=== PATIENT | male | born 1970 | race Caucasian/White ===

== ENCOUNTER 2017-06-26 18:13 | Emergency (ER) | payer OTHER ==
[2017-06-26 18:44] VITALS: TEMP 99.2
[2017-06-26] MEDS ORDERED: Labetalol Hydrochloride 300 mg Tab PO STA ×2 (19:00→21:40)
[2017-06-26] MEDS ORDERED: Labetalol 25mg/5ml Syringe IVP STA (20:00)
[2017-06-26] MEDS ORDERED: Labetalol 25mg/5ml Syringe ONE (20:07)
[2017-06-26 20:26] LABS: BASO # 0.1 K/uL (0.0-0.2); BASO % 0.5 % (0.0-2.0); EOS # 0.2 K/uL (0.0-0.7); EOS % 1.5 % (0.0-4.0); HEMATOCRIT 45.4 % (35.0-51.0); LYMPH # 3.1 K/uL (1.0-4.3); MEAN CORPUSCULAR HEMOGLOBIN 30.1 pg (27.0-31.0); MEAN CORPUSCULAR HGB CONC 34.1 g/dL (33.0-37.0); MONO % 9.3 % (0.0-10.0); RED CELL DISTRIBUTION WIDTH 14.6 % (11.5-14.5); WHITE BLOOD COUNT 10.6 K/uL (4.8-10.8)
[2017-06-26 20:29] LABS: MEAN CELL VOLUME 88.3 fL (80.0-94.0)
[2017-06-26 20:36] LABS: CHLORIDE 105 mmol/L (98-107); SODIUM 140 mmol/L (132-148)
[2017-06-26 20:39] LABS: ALB/GLOB RATIO 1.1 (1.0-2.1); ALKALINE PHOSPHATASE 60 U/L (38-126); ALT/SGPT 37 U/L (21-72); AST/SGOT 36 U/L (17-59); BLOOD UREA NITROGEN 11 mg/dL (9-20); CARBON DIOXIDE 23 mmol/L (22-30); GFR AFRICAN-AMERICAN > 60; GLUCOSE,RANDOM 90 mg/dL (75-110); TOTAL PROTEIN 8.5 g/dL (6.3-8.3)
[2017-06-26 20:40] LABS: CALCIUM 8.9 mg/dl (8.6-10.4); POTASSIUM 4.2 mmol/L (3.6-5.2)
[2017-06-26 20:44] LABS: RBC URINE 5 /hpf (0-3); URINE BACTERIA RARE (<OCC); URINE BILIRUBIN NEGATIVE (NEGATIVE); URINE COLOR Yellow (YELLOW); URINE GLUCOSE (UA) NORMAL (Normal); URINE KETONE NEGATIVE (NEGATIVE); URINE LEUKOCYTE ESTERASE NEG Leu/uL (Negative); URINE PROTEIN 2+ mg/dL (NEGATIVE); URINE UROBILINOGEN NORMAL mg/dL (0.2-1.0); WBC URINE 2 /hpf (0-5)
[2017-06-26 20:46] LABS: URINE BLOOD 1+ (NEGATIVE)
--- NOTE | 2017-06-26 22:30 | C.PDOC ---
History Of Present Illness 46 y/o male c/o mild headache and elevated blood pressure that began today. Patient notes running out of BP meds a week prior. Patient is deaf since childhood, conversation difficult. Denies fever, chills, change in vision, weakness, numbness, or any other complaints. Time Seen by Provider: 06/26/17 20:15 Chief Complaint (Nursing): Headache History Per: Patient History/Exam Limitations: physical impairment (Deafness) Onset/Duration Of Symptoms: Hrs Current Symptoms Are (Timing): Still Present Severity: Mild Recent travel outside of the [place]: No Additional History Per: Patient Past Medical History Reviewed: Historical Data, Nursing Documentation, Vital Signs Vital Signs: Last Vital Signs Temp 99.2 F 06/26/17 18:37 Pulse 86 06/26/17 22:43 Resp 24 06/26/17 22:43 BP 153/97 H 06/26/17 22:43 Pulse Ox 96 06/26/17 22:43 - Medical History PMH: HTN, Hypercholesterolemia - [facility] Procedures CLOSURE SKIN & SUBCUTANEOUS NEC (12/30/14) TETANUS TOXOID ADMINIST (12/30/14) Family History: States: Unknown Family Hx - Social History Hx Tobacco Use: Yes Hx Alcohol Use: Yes Hx Substance Use: Yes - Immunization History Hx Tetanus Toxoid Vaccination: No Hx Influenza Vaccination: No Hx Pneumococcal Vaccination: No Review Of Systems Except As Marked, All Systems Reviewed And Found Negative. Constitutional: Positive for: Other (Elevated BP). Negative for: Fever Eyes: Negative for: Vision Change Neurological: Positive for: Headache. Negative for: Weakness, Numbness Physical Exam - Physical Exam Appears: Non-toxic, No Acute Distress, Other (Obese, pleasant, smiling, Jovial.) Skin: Warm, Dry Head: Atraumatic, Normacephalic Eye(s): bilateral: Normal Inspection Neck: Supple Cardiovascular: Rhythm Regular Respiratory: Normal Breath Sounds, No Rales, No Rhonchi, No Wheezing Gastrointestinal/Abdominal: Soft, No Tenderness Neurological/Psych: Oriented x3 (Awake and alert), Normal Motor, Normal Sensation Gait: Steady ED Course And Treatment - Laboratory Results Result Diagrams: 06/26/17 20:19 06/26/17 20:19 O2 Sat by Pulse Oximetry: 98 (RA) Pulse Ox Interpretation: Normal Medical Decision Making Medical Decision Making: Plans: * EKG * CXR * Catapres * Trandate * Normodyne * UA * IV fluids poorly controlled BP and headache pain lenghy process to lower his BP, better with Labetolol PO, continue as opt and f/ u with PMD Disposition Doctor Will See Patient In The: Office Counseled Patient/Family Regarding: Studies Performed, Diagnosis - Disposition Referrals: [facility] [Outside] [facility] [Outside] [facility] [Outside] Disposition: HOME/ ROUTINE Disposition Time: 22:30 Condition: GOOD Additional Instructions: Hypertension: Continue Labetolol 400 mg twice a day: 8AM and 4PM follow-up in our outpatient Clinic (free) in about 1 month for re-evaluation. Prescriptions: Labetalol [Trandate] 400 mg PO BID #280 tab Forms: [employer] (Uzbek) - Clinical Impression Clinical Impression: Hypertension, Headache - Scribe Statement The provider has reviewed the documentation as recorded by the Scribe Vineet barr All medical record entries made by the Scribe were at my direction and personally dictated by me. I have reviewed the chart and agree that the record accurately reflects my personal performance of the history, physical exam, medical decision making, and the department course for this patient. I have also personally directed, reviewed, and agree with the discharge instructions and disposition.
[2017-06-26 22:45] VITALS: BP 153/97; PULSE 86; RESP 24
[2017-06-27 02:31] VITALS: O2SAT 98
--- NOTE | 2017-06-27 10:29 | RAD ---
PROCEDURE: CHEST RADIOGRAPH, 1 VIEW HISTORY: SOB COMPARISON: Chest radiographs 12/01/2015. FINDINGS: LUNGS: Clear. PLEURA: No pneumothorax or pleural fluid seen. CARDIOVASCULAR: Normal. OSSEOUS STRUCTURES: No significant abnormalities. VISUALIZED UPPER ABDOMEN: Normal. OTHER FINDINGS: None. IMPRESSION: No acute cardiopulmonary disease or significant interval change.
== END 2017-06-26 22:48 | disposition home or self-care (01) ==
LOC: C.ER 18:13
DX: I10 Essential (primary) hypertension (principal); R51 Headache

== ENCOUNTER 2018-04-15 08:11 | Emergency (ER) | payer OTHER ==
[2018-04-15 08:27] VITALS: TEMP 99.1
--- NOTE | 2018-04-15 08:40 | C.PDOC ---
History Of Present Illness Patient is a 47 y/o male, with a Hx of chronic left leg swelling since 2011, chronic left ankle pain, and deafness since childhood, who presents to the ED with a complaint of new onset of left foot pain and swelling for the last 2-3 days. Patient reports to have had prior similar symptoms on right foot; questionable history of Gout. Patient is compliant with Lebetalol, last dose this morning. Denies any trauma, fever, chest pain, headache, or any other associated symptoms. Time Seen by Provider: 04/15/18 08:29 Chief Complaint (Nursing): Lower Extremity Problem/Injury History Per: Patient History/Exam Limitations: no limitations Onset/Duration Of Symptoms: Days (2-3) Current Symptoms Are (Timing): Still Present Past Medical History Reviewed: Historical Data, Nursing Documentation, Vital Signs Vital Signs: Last Vital Signs Temp 99.1 F 04/15/18 08:25 Pulse 75 04/15/18 10:35 Resp 16 04/15/18 10:35 BP 184/104 H 04/15/18 10:35 Pulse Ox 95 04/15/18 11:09 - Medical History PMH: HTN, Hypercholesterolemia, Chronic Pain (chronic left leg swelling and left ankle pain ) Other PMH: deaf since childhood Surgical History: No Surg Hx - [facility] Procedures CLOSURE SKIN & SUBCUTANEOUS NEC (12/30/14) TETANUS TOXOID ADMINIST (12/30/14) Family History: States: No Known Family Hx - Social History Hx Tobacco Use: Yes Hx Alcohol Use: Yes Hx Substance Use: Yes - Immunization History Hx Tetanus Toxoid Vaccination: No Hx Influenza Vaccination: No Hx Pneumococcal Vaccination: No Review Of Systems Constitutional: Negative for: Fever Cardiovascular: Negative for: Chest Pain Musculoskeletal: Positive for: Foot Pain (left foot pain and swelling) Neurological: Negative for: Weakness, Numbness, Headache Physical Exam - Physical Exam Appears: Well, Non-toxic, No Acute Distress, Other (deaf) Skin: Normal Color, Warm, Dry, Other (erythema to left metatarsal head) Head: Atraumatic, Normacephalic Eye(s): bilateral: PERRL, EOMI Oral Mucosa: Moist Chest: Symmetrical Cardiovascular: Rhythm Regular, No Murmur Respiratory: Normal Breath Sounds, No Rales, No Rhonchi, No Wheezing Gastrointestinal/Abdominal: Soft, No Tenderness Extremity: Normal ROM (active range of motion), Tenderness (to left metatarsal head), No Deformity (no gross deformity ), Swelling (left metatarsal head) ED Course And Treatment O2 Sat by Pulse Oximetry: 95 Progress Note: Catapres 0.3 mg PO, Colocrys 1.2 mg PO, Indocin 50 mg PO, and Prednisone 60 mg PO administered. Reevaluation Time: 10:55 Reassessment Condition: Improved (improved since prior evaluation; continue Colchicine.) Progress - Data Reviewed Data Reviewed: Old records Disposition Counseled Patient/Family Regarding: Diagnosis, Need For Followup, Rx Given - Disposition Referrals: YOUR,PMD [Other] Disposition: HOME/ ROUTINE Disposition Time: 12:11 Condition: IMPROVED Prescriptions: Colchicine [Colcrys] 0.6 mg PO BID PRN #6 tablet PRN Reason: Pain, Moderate (4-7) Indomethacin [Indocin] 50 mg PO TID PRN #9 cap PRN Reason: Pain, Moderate (4-7) predniSONE [Prednisone] 60 mg PO DAILY #12 tab Instructions: Gout (DC) Forms: [employer] (Prydeinig) - Clinical Impression Clinical Impression: Gout - Scribe Statement The provider has reviewed the documentation as recorded by the Scribe Pooja Galdamez All medical record entries made by the Jenniferibe were at my direction and personally dictated by me. I have reviewed the chart and agree that the record accurately reflects my personal performance of the history, physical exam, medical decision making, and the department course for this patient. I have also personally directed, reviewed, and agree with the discharge instructions and disposition.
[2018-04-15 10:36] VITALS: RESP 16
[2018-04-15 11:09] VITALS: O2SAT 95
[2018-04-15 13:30] VITALS: BP 175/101; PULSE 69
== END 2018-04-15 13:29 | disposition home or self-care (01) ==
LOC: C.ER 08:11
DX: M10.9 Gout, unspecified (principal)

== ENCOUNTER 2018-05-14 16:29 | Emergency (ER) | payer OTHER ==
[2018-05-14 17:49] LABS: URINE BILIRUBIN NEGATIVE (NEGATIVE); URINE BLOOD 1+ (NEGATIVE); URINE CLARITY Clear (Clear); URINE COLOR Yellow (YELLOW); URINE GLUCOSE (UA) NORMAL (Normal); URINE LEUKOCYTE ESTERASE NEG Leu/uL (Negative); URINE PROTEIN NEGATIVE (NEGATIVE); URINE UROBILINOGEN NORMAL mg/dL (0.2-1.0)
[2018-05-14 17:58] VITALS: O2SAT 99
--- NOTE | 2018-05-14 18:12 | C.PDOC ---
History Of Present Illness 47-year-old male sent to the emergency department by his PMD for evaluation of elevated blood pressure. Pt went to doctor for routine physical today in order to apply for jobs. He has PMHx of HTN, hyperlipidemia. Patient states he has been compliant with 400mg Labetalol BID, Atenolol 1tab daily for approximately one year. He denies current physical complaints, including chest pain, abdominal pain, shortness of breath, nausea/vomiting, headache, dizziness, visual changes, facial droop, slurred speech, extremity weakness, sensory changes, or any other associated symptoms. No medication adjustments were made in PMD's office today. Time Seen by Provider: 05/14/18 16:56 Chief Complaint (Nursing): High Blood Pressure History Per: Patient History/Exam Limitations: no limitations Current Symptoms Are (Timing): Still Present Associated Symptoms: denies: Chest Pain, Dyspnea, Dizziness, Blurred Vision, Focal Weakness, Headache Quality Of Symptoms: Asymptomatic Past Medical History Reviewed: Historical Data, Nursing Documentation, Vital Signs Vital Signs: Last Vital Signs Temp 98.1 F 05/14/18 18:56 Pulse 79 05/14/18 18:56 Resp 20 05/14/18 18:56 BP 177/115 H 05/14/18 18:56 Pulse Ox 99 05/14/18 19:12 - Medical History PMH: HTN, Hypercholesterolemia, Chronic Pain (chronic left leg swelling and left ankle pain ) - [facility] Procedures CLOSURE SKIN & SUBCUTANEOUS NEC (12/30/14) TETANUS TOXOID ADMINIST (12/30/14) Family History: States: No Known Family Hx - Social History Hx Tobacco Use: Yes Hx Alcohol Use: Yes Hx Substance Use: No - Immunization History Hx Tetanus Toxoid Vaccination: No Hx Influenza Vaccination: No Hx Pneumococcal Vaccination: No Review Of Systems Constitutional: Negative for: Fever, Chills Cardiovascular: Negative for: Chest Pain, Palpitations Respiratory: Negative for: Shortness of Breath Gastrointestinal: Negative for: Nausea, Vomiting Musculoskeletal: Negative for: Neck Pain, Back Pain Neurological: Negative for: Weakness, Numbness, Incoordination, Confusion, Seizures, Altered Mental Status, Headache, Dizziness Physical Exam - Physical Exam Appears: Well, Non-toxic, No Acute Distress, Other (speech slightly slurred/ garbled due to hearing impairment) Skin: Normal Color, Warm, Dry, No Rash Head: Atraumatic, Normacephalic Eye(s): bilateral: Normal Inspection, PERRL, EOMI Ear(s): Left: Other (+hearing aid) Oral Mucosa: Moist Neck: Normal, Normal ROM, Supple Cardiovascular: Rhythm Regular, No Murmur Respiratory: Normal Breath Sounds, No Rales, No Rhonchi, Wheezing Gastrointestinal/Abdominal: Normal Exam, Bowel Sounds, Soft, No Tenderness Extremity: Normal ROM, No Pedal Edema, No Calf Tenderness Neurological/Psych: Oriented x3, Normal Speech, Normal Cognition, Normal Cranial Nerves, No Cerebellar Signs, Normal Motor, Normal Sensation, No Dysarthria, No Romberg Gait: Steady ED Course And Treatment - Laboratory Results Result Diagrams: 05/14/18 18:38 05/14/18 18:38 ECG: Interpreted By Me, Viewed By Me (sinus rhythm 78 bpm, normal axis, T wave inversions I, aVL, V6, no acute ST changes) ECG Interpretation: No Acute Changes Rate From EC O2 Sat by Pulse Oximetry: 99 (RA) Pulse Ox Interpretation: Normal Progress Note: Blood work, EKG ordered and reviewed. Patient given PO Norvasc 10mg. Reevaluation Time: 19:15 Reassessment Condition: Improved (On reassessment, patient is resting comfortably, in no distress or pain, completely asymptomatic. Will add Norvasc to patient's HTN regimen. He was instructed to follow up with PMD in 1-2 days, and he understands he should return to ED if symptoms worsen.) Disposition Counseled Patient/Family Regarding: Studies Performed, Diagnosis, Need For Followup, Rx Given - Disposition Referrals: Carolyn Walker MD [Medical Doctor] - Disposition: HOME/ ROUTINE Disposition Time: 19:15 Condition: STABLE Additional Instructions: FOLLOW UP WITH YOUR DOCTOR IN 1-2 DAYS RETURN TO ER IF YOU HAVE ANY CONCERNING SYMPTOMS Prescriptions: amLODIPine [Norvasc] 10 mg PO DAILY #30 tab Instructions: High Blood Pressure (DC) Forms: [facility] (Luxembourgish) Print Language: TELUGU - POA Present On Arrival: None - Clinical Impression Clinical Impression: Hypertension - Scribe Statement The provider has reviewed the documentation as recorded by the Scribe (Madi Horner) All medical record entries made by the Scribe were at my direction and personally dictated by me. I have reviewed the chart and agree that the record accurately reflects my personal performance of the history, physical exam, medical decision making, and the department course for this patient. I have also personally directed, reviewed, and agree with the discharge instructions and disposition.
[2018-05-14 18:47] LABS: BASO % 0.2 % (0.0-2.0); EOS % 0.2 % (0.0-4.0); HEMOGLOBIN 15.7 g/dL (12.0-18.0); LYMPH # 2.2 K/uL (1.0-4.3); MEAN CELL VOLUME 88.3 fL (80.0-94.0); MEAN CORPUSCULAR HEMOGLOBIN 30.1 pg (27.0-31.0); MEAN CORPUSCULAR HGB CONC 34.1 g/dL (33.0-37.0); MEAN PLATELET VOLUME 8.3 fL (7.2-11.7); MONO # 0.7 K/uL (0.0-0.8); MONO % 6.8 % (0.0-10.0); NEUT # 7.1 K/uL (1.8-7.0); NEUT % 70.8 % (50.0-75.0); NRBC % 0.1 % (0.0-2.0); RBC 5.23 Mil/uL (4.40-5.90); RED CELL DISTRIBUTION WIDTH 15.2 % (11.5-14.5)
[2018-05-14 18:56] LABS: INR 1.1; PROTHROMBIN TIME 12.3 SECONDS (9.7-12.2)
[2018-05-14 18:57] VITALS: BP 177/115; PULSE 79; RESP 20; TEMP 98.1
[2018-05-14 18:59] LABS: ALB/GLOB RATIO 1.4 (1.0-2.1); ALBUMIN 4.6 g/dL (3.5-5.0); ALT/SGPT 31 U/L (21-72); AST/SGOT 21 U/L (17-59); BLOOD UREA NITROGEN 13 mg/dL (9-20); CALCIUM 9.8 mg/dl (8.6-10.4); GFR AFRICAN-AMERICAN > 60; GFR NON-AFRICAN AMERICAN > 60
[2018-05-14 19:11] LABS: CK-MB 1.77 ng/mL (0.0-3.38)
--- NOTE | 2018-05-15 11:46 | CARD ---
APPROVED REPORT Date of service: 05/14/2018 EKG Measurement Heart [id number] VT [id number] <Conclusion> Normal sinus rhythm Possible Left atrial enlargement Septal infarct, age undetermined T wave abnormality, consider lateral ischemia Abnormal ECG
== END 2018-05-14 19:26 | disposition home or self-care (01) ==
LOC: C.ER 16:29
DX: I10 Essential (primary) hypertension (principal)

== ENCOUNTER 2018-11-19 16:41 | Observation (INO) | payer OTHER ==
[2018-11-19] MEDS ORDERED: Labetalol 25mg/5ml Syringe IVP STA (18:33)
--- NOTE | 2018-11-19 19:01 | RAD ---
HISTORY: cough COMPARISON: Chest x-ray performed 06/26/17 TECHNIQUE: Chest PA and lateral FINDINGS: LUNGS: Patchy right infrahilar, medial left upper lobe and retrocardiac opacities may reflect atelectasis and/or infiltrates. Please note that chest x-ray has limited sensitivity for the detection of pulmonary masses. PLEURA: No significant pleural effusion identified. No definite pneumothorax. CARDIOVASCULAR: Cardiomegaly. Ectatic aorta. Atherosclerotic calcifications of the aorta. OSSEOUS STRUCTURES: Degenerative changes. VISUALIZED UPPER ABDOMEN: Unremarkable. OTHER FINDINGS: None. IMPRESSION: Patchy right infrahilar, medial left upper lobe and retrocardiac opacities may reflect atelectasis and/or infiltrates.
[2018-11-19] MEDS ORDERED: Labetalol 5mg/ml (4ml) IVP STA (19:19)
[2018-11-19 19:20] LABS: BASO % 0.4 % (0.0-2.0); EOS # 0.1 K/uL (0.0-0.7); EOS % 0.9 % (0.0-4.0); HEMOGLOBIN 16.2 g/dL (12.0-18.0); LYMPH # 1.9 K/uL (1.0-4.3); LYMPH % 20.4 % (20.0-40.0); MEAN CELL VOLUME 89.8 fL (80.0-94.0); MEAN CORPUSCULAR HEMOGLOBIN 29.7 pg (27.0-31.0); MEAN CORPUSCULAR HGB CONC 33.1 g/dL (33.0-37.0); MONO # 0.9 K/uL (0.0-0.8); MONO % 9.1 % (0.0-10.0); NEUT # 6.6 K/uL (1.8-7.0); NEUT % 69.2 % (50.0-75.0); NRBC % 0.1 % (0.0-2.0); RBC 5.44 Mil/uL (4.40-5.90); RED CELL DISTRIBUTION WIDTH 14.7 % (11.5-14.5); WHITE BLOOD COUNT 9.5 K/uL (4.8-10.8)
[2018-11-19 19:41] LABS: ALB/GLOB RATIO 1.2 (1.0-2.1); ALBUMIN 4.8 g/dL (3.5-5.0); ALT/SGPT 33 U/L (21-72); AST/SGOT 31 U/L (17-59); BLOOD UREA NITROGEN 13 mg/dL (9-20); CALCIUM 9.1 mg/dl (8.6-10.4); GFR NON-AFRICAN AMERICAN > 60
--- NOTE | 2018-11-19 19:42 | C.PDOC ---
History Of Present Illness 48 year old male presents to the ED for evaluation of throat pain, runny nose and cough that is productive of yellow sputum which began three days ago. Patient reports decreased PO intake due to his throat pain. He also reports self-induced vomiting because of his throat pain. He states he has been compliant with his labetalol. He denies fever, chills, abdominal pain, changes in bowel habits. Time Seen by Provider: 11/19/18 18:07 Chief Complaint (Nursing): ENT Problem History Per: Patient, Scow Hand ([id number]) History/Exam Limitations: other (deaf) Onset/Duration Of Symptoms: Days (3) Current Symptoms Are (Timing): Still Present Associated Symptoms: Sore Throat, Cough, Sputum (yellow ), Vomiting. denies: Fever, Chills, Diarrhea Additional History Per: Patient Past Medical History Reviewed: Historical Data, Nursing Documentation, Vital Signs Vital Signs: Last Vital Signs Temp 99.2 F 11/19/18 17:17 Pulse 102 H 11/19/18 17:17 Resp 20 11/19/18 17:17 BP 223/125 H 11/19/18 17:17 Pulse Ox 94 L 11/19/18 17:17 - Medical History PMH: HTN, Hypercholesterolemia, Chronic Pain (chronic left leg swelling and left ankle pain ) Surgical History: No Surg Hx - [facility] Procedures CLOSURE SKIN & SUBCUTANEOUS NEC (12/30/14) TETANUS TOXOID ADMINIST (12/30/14) Family History: States: Unknown Family Hx - Social History Hx Tobacco Use: Yes Hx Alcohol Use: Yes Hx Substance Use: No - Immunization History Hx Tetanus Toxoid Vaccination: No Hx Influenza Vaccination: No Hx Pneumococcal Vaccination: No Review Of Systems Constitutional: Negative for: Fever, Chills ENT: Positive for: Nose Discharge, Throat Pain Respiratory: Positive for: Cough, Sputum (yellow ) Gastrointestinal: Positive for: Vomiting. Negative for: Abdominal Pain, Diarrhea, Constipation Physical Exam - Physical Exam Appears: Non-toxic, No Acute Distress Skin: Normal Color, Warm, Dry Head: Atraumatic, Normacephalic Eye(s): bilateral: Normal Inspection Nose: Normal, No Discharge Oral Mucosa: Moist Throat: Erythema, No Exudate, No Drooling, Other (uvula at midline ) Neck: Supple Chest: Symmetrical, No Deformity, No Tenderness Cardiovascular: Rhythm Regular, No Murmur Respiratory: Normal Breath Sounds, No Rales, No Rhonchi, No Wheezing Gastrointestinal/Abdominal: Soft, No Tenderness, No Guarding, No Rebound Extremity: Normal ROM, Capillary Refill (less than 2 seconds ) Neurological/Psych: Normal Cognition, Other (deaf) ED Course And Treatment - Laboratory Results Result Diagrams: 11/19/18 19:13 11/19/18 19:13 ECG: Interpreted By Me, Viewed By Me ECG Rhythm: Sinus Rhythm ECG Interpretation: Normal Interpretation Of ECG: No STEMI Rate From EC O2 Sat by Pulse Oximetry: 94 (on RA ) Pulse Ox Interpretation: Normal - CT Scan/US CT Neck Other Rad Studies (CT/US): Read By Radiologist, Radiology Report Reviewed CT/US Interpretation: EXAM: CT Neck without Intravenous Contrast. CLINICAL HISTORY: Throat pain. TECHNIQUE: Axial computed tomography images of the neck without intravenous contrast. Sagittal and coronal reformatted images were generated. 0.00 mGy-cm. CONTRAST: Without. COMPARISON: None provided. FINDINGS: PHARYNX: Unremarkable appearance of the nasopharynx, oropharyx, and hypopharynx. No pharyngeal mucosal based mass lesions. LARYNX: Normal appearance of the larynx. Unremarkable epiglottis. RETROPHARYNGEAL SPACE: The retropharyngeal soft tissues appear within normal limits. SALIVARY GLANDS: No salivary gland abnormality evident. Unremarkable appearance of the parotid, submandibular, and sublingual glands. LYMPH NODES: No significant lymphadenopathy. THYROID: Unremarkable appearance of the thyroid. No thyroid nodule seen. BONES: No aggressive appearing osseous lesion. No acute osseous abnormality. There is evidence of degenerative disc disease at C6-7. Degenerative arthritis is seen within the atlanto-dens interval. IMPRESSION: 1. Degenerative disc disease at C6-7. Degenerative arthritis within the atlanto-dens interval. 2. Otherwise, unremarkable CT neck with IV contrast. Medical Decision Making Medical Decision Making: Progress: Bloodwork, CXR, CT Neck, Flu swab and Rapid Strep test ordered. Toradol IVP and Trandate IVP given. 1033 bp most improved 180/107 CT soft tissue neck unremarkable b/l PNA on XR, moxi ordered will admit given elevated BP, PNA paged Dr. Martinez [id number] Martinez Disposition - Disposition Disposition Time: 22:42 Condition: GOOD Forms: [employer] (Surinamese) - Clinical Impression Clinical Impression: Hypertension, Pneumonia - Scribe Statement The provider has reviewed the documentation as recorded by the Scribe (Sabi Martinez) Provider Attestation: All medical record entries made by the Scribe were at my direction and per sonally dictated by me. I have reviewed the chart and agree that the record accurately reflects my personal performance of the history, physical exam, medical decision making, and the department course for this patient. I have also personally directed, reviewed, and agree with the discharge instructions and disposition.
[2018-11-19 20:16] LABS: INFLUENZA A B NEGATIVE FOR FLU A/B (NEGATIVE)
[2018-11-19] MEDS ORDERED: Moxifloxacin IV 400mg/250ml NS 400 MG/250 ML BAG IVPB ONE ×2 (20:19→21:51)
[2018-11-19] MEDS ORDERED: Labetalol 5 mg/ml Inj 20ML IV STA (23:10)
[2018-11-20] MEDS ORDERED: Potassium Chloride 20 mEq ER Tab PO STA (06:52)
[2018-11-20] MEDS ORDERED: Potassium Chloride 20 mEq ER Tab PO ONE (06:58)
[2018-11-20] MEDS: Pantoprazole 40 mg EC Tab PO SCH (09:58)
[2018-11-20] MEDS: Enoxaparin 40 mg Syringe SC SCH (10:00)
[2018-11-20] MEDS ORDERED: Enoxaparin 150 mg Syringe SC SCH (10:00)
[2018-11-20] MEDS ORDERED: Nitroglycerin 2% Ointment Foilpak UD TOP ONE (10:00)
--- NOTE | 2018-11-20 10:28 | CT ---
Date of service: 11/19/2018 PROCEDURE: CT NECK WITHOUT CONTRAST HISTORY: throat pain COMPARISON: None available. TECHNIQUE: CT of the neck without intravenous contrast. Coronal and sagittal reformats generated. Radiation dose: Total exam DLP = 520.7 mGy-cm. This CT exam was performed using one or more of the following dose reduction techniques: Automated exposure control, adjustment of the mA and/or kV according to patient size, and/or use of iterative reconstruction technique. FINDINGS: NASOPHARYNX: Unremarkable. SUPRAHYOID NECK: Unremarkable oropharynx, oral cavity, parapharyngeal space and retropharyngeal space. INFRAHYOID NECK: Unremarkable larynx, hypopharynx, and supraglottic space. Vocal cords intact. MASS: None. GLANDS: Parotid and submandibular glands unremarkable. Normal size thyroid gland, without nodule. LYMPH NODES: Shotty subcentimeter nodes are identified in levels 1 through 3. There is no significant cervical lymphadenopathy appreciated CERVICAL SPINE: Degenerative disc disease at C5-6 and C6-7. There reversal of the normal lordotic curvature of the cervical spine indicating possible muscular spasm there is cervical spinal stenosis at the C 6 level as a result of large posterior osteophytes. There is extensive facet arthropathy on the right side at C3-4. This results in severe right C3-4 neural foraminal stenosis. There is moderate to severe left C4-5 neural foraminal stenosis. There is moderate to severe bilateral C6-7 neural foraminal stenosis. OTHER FINDINGS: None. IMPRESSION: Degenerative disease of the cervical spine as described with central spinal stenosis and multilevel neural foraminal stenosis. Possible muscular spasm. No other significant abnormality. The preliminary findings for this examination were reported by [facility] at 9:53 p.m. on 11/19/2018. There is concurrence of this report with the preliminary findings.
--- NOTE | 2018-11-20 14:21 | CARD ---
APPROVED REPORT Date of service: 11/19/2018 EKG Measurement Heart [id number] <Conclusion> Normal sinus rhythm Possible Left atrial enlargement Cannot rule out Anterior infarct, age undetermined ST & T wave abnormality, consider lateral ischemia Abnormal ECG
[2018-11-20 16:36] VITALS: RESP 20
--- NOTE | 2018-11-20 18:13 | CP.PCM.HP ---
Past Patient History - Past Social History Smoking Status: Heavy Smoker > 10 Cigarettes Daily - CARDIAC Hx Hypercholesterolemia: Yes Hx Hypertension: Yes - HEENT Hx HEENT Problems: Yes Hx Deafness: Yes - MUSCULOSKELETAL/RHEUMATOLOGICAL Hx Gout: Yes - PSYCHIATRIC Hx Substance Use: No - SURGICAL HISTORY Hx Surgeries: Yes Hx Orthopedic Surgery: Yes (left foot) - ANESTHESIA Hx Anesthesia: Yes Hx Anesthesia Reactions: No Meds Allergies/Adverse Reactions: Allergies Allergy/AdvReac Type Severity Reaction Status Date / Time No Known Allergies Allergy Verified 11/19/18 17:23 Physical Exam - Constitutional Appears: Well - Head Exam Head Exam: ATRAUMATIC, NORMAL INSPECTION, NORMOCEPHALIC - Eye Exam Eye Exam: EOMI, Normal appearance, PERRL Pupil Exam: NORMAL ACCOMODATION, PERRL - ENT Exam ENT Exam: Mucous Membranes Moist, Normal Exam - Neck Exam Neck exam: Positive for: Normal Inspection - Respiratory Exam Respiratory Exam: Decreased Breath Sounds - Cardiovascular Exam Cardiovascular Exam: REGULAR RHYTHM, +S1, +S2 - GI/Abdominal Exam GI & Abdominal Exam: Diminished Bowel Sounds, Soft - Rectal Exam Rectal Exam: Deferred Results - Vital Signs Recent Vital Signs: Last Vital Signs Temp 98.1 F 11/20/18 16:00 Pulse 78 11/20/18 16:00 Resp 20 11/20/18 16:00 BP 163/94 H 11/20/18 16:00 Pulse Ox 95 11/20/18 16:00 - Labs Result Diagrams: 11/19/18 19:13 11/19/18 19:13 Labs: Laboratory Results - last 24 hr 11/19/18 11/19/18 11/19/18 19:13 19:13 19:56 WBC 9.5 RBC 5.44 Hgb 16.2 Hct 48.8 MCV 89.8 MCH 29.7 MCHC 33.1 RDW 14.7 H Plt Count 250 MPV 8.0 Neut % (Auto) 69.2 Lymph % (Auto) 20.4 [place] % (Auto) 9.1 Eos % (Auto) 0.9 Baso % (Auto) 0.4 Neut # (Auto) 6.6 Lymph # (Auto) 1.9 [place] # (Auto) 0.9 H Eos # (Auto) 0.1 Baso # (Auto) 0.0 Sodium 142 Potassium 3.5 L Chloride 106 Carbon Dioxide 25 Anion Gap 15 BUN 13 Creatinine 1.1 Est GFR ( Amer) > 60 Est GFR (Non-Af Amer) > 60 Random Glucose 106 Calcium 9.1 Total Bilirubin 0.7 AST 31 ALT 33 Alkaline Phosphatase 77 Troponin I 0.0190 Total Protein 8.7 H Albumin 4.8 Globulin 3.9 Albumin/Globulin Ratio 1.2 Influenza Typ A,B (EIA) Negative for flu a/b Grp A Beta Strep Ag Negative
[2018-11-20] MEDS ORDERED: Azithromycin 500 MG in Sodium Chloride 0.9% 250 ML IVPB SCH (23:15)
[2018-11-21] MEDS ORDERED: Nitroglycerin 2% Ointment Foilpak UD TOP PRN (08:03)
[2018-11-21 08:40] VITALS: O2SAT 97
[2018-11-21] MEDS: Pantoprazole 40 mg EC Tab PO SCH (10:16)
[2018-11-21] MEDS: Enoxaparin 40 mg Syringe SC SCH (10:17)
--- NOTE | 2018-11-21 12:53 | CP.PCM.PN ---
Subjective - Date & Time of Evaluation Date of Evaluation: 11/21/18 Time of Evaluation: 09:30 - Subjective Subjective: clinically same Objective - Vital Signs/Intake and Output Vital Signs (last 24 hours): Temp Pulse Resp BP Pulse Ox 98.1 F 79 20 143/81 97 11/21/18 07:00 11/21/18 09:00 11/21/18 07:00 11/21/18 09:00 11/21/18 07:00 - Medications Medications: Current Medications Amlodipine Besylate (Norvasc) 10 mg PO DAILY [facility] Last Admin: 11/21/18 10:17 Dose: Not Given Chlorthalidone (Hygroton) 25 mg PO DAILY [facility] Last Admin: 11/21/18 10:17 Dose: Not Given Colchicine (Colocrys) 0.6 mg PO BID PRN PRN Reason: Pain, moderate (4-7) Last Admin: 11/21/18 10:16 Dose: 0.6 mg Enoxaparin Sodium (Lovenox) 40 mg SC DAILY [facility] Last Admin: 11/21/18 10:17 Dose: 40 mg Hydrochlorothiazide (Hydrodiuril) 25 mg PO DAILY [facility] Last Admin: 11/21/18 10:17 Dose: Not Given Azithromycin 500 mg/ Sodium (Chloride) 250 mls @ 250 mls/hr IVPB Q24H [facility]; Protocol Last Admin: 11/21/18 00:01 Dose: 250 mls/hr Ceftriaxone Sodium 1 gm/ (Sodium Chloride) 100 mls @ 100 mls/hr IVPB DAILY [facility]; Protocol Last Admin: 11/21/18 10:17 Dose: 100 mls/hr Indomethacin (Indocin) 50 mg PO TID PRN PRN Reason: Pain, moderate (4-7) Labetalol HCl (Trandate) 400 mg PO BID [facility] Last Admin: 11/21/18 10:17 Dose: Not Given Losartan Potassium (Cozaar) 50 mg PO DAILY [facility] Last Admin: 11/21/18 10:16 Dose: 50 mg Nitroglycerin (Nitro-Bid 2% Oint) 1 ea TOP Q6H PRN PRN Reason: Other Pantoprazole Sodium (Protonix Ec Tab) 40 mg PO DAILY [facility] Last Admin: 11/21/18 10:16 Dose: 40 mg - Labs Labs: 11/19/18 19:13 11/19/18 19:13
[2018-11-21] MEDS ORDERED: Potassium Chloride 20 mEq ER Tab PO ONE ×2 (14:30→18:00)
[2018-11-21 16:04] VITALS: BP 148/76; PULSE 78; TEMP 97.8
[2018-11-21 16:20] LABS: BLOOD UREA NITROGEN 17 mg/dL (9-20); CALCIUM 9.1 mg/dl (8.6-10.4); GFR NON-AFRICAN AMERICAN 59
--- NOTE | 2018-11-21 17:25 | CP.PCM.CON ---
History of Present Illness - History of Present Illness History of Present Illness: Mr. Tesfaye is a 48yo M with PMHx of deafness, HTN, gout, who had initially presented to the ED with complaints of productive cough/throat pain x several days. Initial work-up with CXR revealed only small patchy opacity in the retromediastinal/infrahilar regions. Additionally in the ED, patient's BP was noted at 223/125; patient reports non-compliance with any of his BP medications for several months due to insurance reasons. His troponin was negative and EKG was NSR. Patient was subsequently admitted to the hospital for further care. Negative cultures to date. During the initial encounter today, patient states that he came in with several days and multiple episodes of "vomiting" yellowish/brown emesis. This vomiting has caused him throat irritation, shortness of breath and difficulty sleeping. He denies any inciting events and/or modifying factors. He further explains that he is a heavy tobacco and marijuana user, and that he has been frequently short of breath during both exercise, walking up stairs and during sexual activity. ROS: (+) chest pain, shortness of breath, cough, paroxysmal nocturnal dyspnea, dyspnea on exertion, arthritic pain All other systems are negative unless stated in HPI PMHx: HTN, gout, deafness, kidney stone, chronic leg pain PSHx: Denies Code status: Full code Social Hx: Admits to heavy tobacco (>1ppd x 25yrs) and recreational marijuana use (multiple days/week), admits to EtOH use Allergies: NKDA Home Medications: Norvasc 10mg, Labetalol 400mg BID, Atenolol/Chlorthalidone qd, Indomethacin 50mg prn, Colchicine 0.6mg prn (patient admits to frequent non-c ompliance due being unable to fill Rx from insurance reasons) Exam: Vitals: O2: 97% on RA, T: 98.1 BP: 143/81 HR: 79 RR: 18 Gen: No acute distress. AAOx3. Deaf;communicates well with interpretor. (+) Diaphoretic HEENT: Moist mucosa. Non-tender sinuses, (+) pharyngeal erythema. No tonsillar exudate noted. Card: RRRR. Lungs: No tachpnea or respiratory distress. Symmetric chest excursions. CTA bilaterally. No wheezing, rales or rhonchi. Abd: Soft, non-distended. Normal bowel sounds. No tenderness to palpation. Ext: No leg swelling noted. A&P Summary: Mr. Tesfaye is a 48yo M with PMHx of deafness, poorly controlled HTN and gout, who presents with several days of vomiting yellow/brownish emesis, cough/throat irritation and SOB. He does not report any inciting events or mod ifying factors. Patient is a heavy smoker and reports being frequently out of breath during exercise and sexual activity. Upon initial evaluation in the ED, patient's BP was significantly elevated at 223/125. 1. 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 Hypertension - Continue current medications - EKG: NSR at 79 with left atrial enlargement, and old artifact anterior infarct - Troponin negative - BP elevated in the ED: 223/125; Currently maintained at 143/81 - ECHO results pending - Recommend ordering HbA1c Past Patient History - Past Social History Smoking Status: Heavy Smoker > 10 Cigarettes Daily - CARDIAC Hx Hypercholesterolemia: Yes Hx Hypertension: Yes - HEENT Hx HEENT Problems: Yes Hx Deafness: Yes - MUSCULOSKELETAL/RHEUMATOLOGICAL Hx Gout: Yes - PSYCHIATRIC Hx Substance Use: No - SURGICAL HISTORY Hx Surgeries: Yes Hx Orthopedic Surgery: Yes (left foot) - ANESTHESIA Hx Anesthesia: Yes Hx Anesthesia Reactions: No Meds Home Medications: Home Medication List Medication Instructions Recorded Confirmed Type Amoxicillin/Clavulanate [Augmentin 1 tab PO Q12H 5 Days tab 11/21/18 Rx 875 MG-125 MG] Losartan [Cozaar] 50 mg PO DAILY 30 Days tab 11/21/18 Rx Nicotine 7 mg/24 hr [Nicoderm CQ] 1 patch TD DAILY 30 Days patch 11/21/18 Rx Saccharomyces Boulardii [Florastor] 250 mg PO BID 5 Days capsule 11/21/18 Rx Allergies/Adverse Reactions: Allergies Allergy/AdvReac Type Severity Reaction Status Date / Time No Known Allergies Allergy Verified 11/19/18 17:23 - Medications Medications: Current Medications Amlodipine Besylate (Norvasc) 10 mg PO DAILY [facility] Last Admin: 11/21/18 10:17 Dose: Not Given Chlorthalidone (Hygroton) 25 mg PO DAILY [facility] Last Admin: 11/21/18 10:17 Dose: Not Given Colchicine (Colocrys) 0.6 mg PO BID PRN PRN Reason: Pain, moderate (4-7) Last Admin: 11/21/18 10:16 Dose: 0.6 mg Enoxaparin Sodium (Lovenox) 40 mg SC DAILY [facility] Last Admin: 11/21/18 10:17 Dose: 40 mg Hydrochlorothiazide (Hydrodiuril) 25 mg PO DAILY [facility] Last Admin: 11/21/18 10:17 Dose: Not Given Azithromycin 500 mg/ Sodium (Chloride) 250 mls @ 250 mls/hr IVPB Q24H [facility]; Protocol Last Admin: 11/21/18 00:01 Dose: 250 mls/hr Ceftriaxone Sodium 1 gm/ (Sodium Chloride) 100 mls @ 100 mls/hr IVPB DAILY [facility]; Protocol Last Admin: 11/21/18 10:17 Dose: 100 mls/hr Indomethacin (Indocin) 50 mg PO TID PRN PRN Reason: Pain, moderate (4-7) Labetalol HCl (Trandate) 400 mg PO BID [facility] Last Admin: 11/21/18 17:19 Dose: 400 mg Losartan Potassium (Cozaar) 50 mg PO DAILY [facility] Last Admin: 11/21/18 10:16 Dose: 50 mg Nitroglycerin (Nitro-Bid 2% Oint) 1 ea TOP Q6H PRN PRN Reason: Other Last Admin: 11/21/18 14:06 Dose: 1 ea Pantoprazole Sodium (Protonix Ec Tab) 40 mg PO DAILY [facility] Last Admin: 11/21/18 10:16 Dose: 40 mg Potassium Chloride (K-Dur 20 Meq Er Tab) 40 meq PO ONCE ONE Stop: 11/21/18 18:01 Last Admin: 11/21/18 17:20 Dose: 40 meq Results - Vital Signs Recent Vital Signs: Last Vital Signs Temp 97.8 F 11/21/18 15:00 Pulse 78 11/21/18 15:00 Resp 20 11/21/18 15:00 BP 148/76 11/21/18 15:00 Pulse Ox 97 11/21/18 15:00 - Labs Result Diagrams: 11/19/18 19:13 11/21/18 16:02 Labs: Laboratory Results - last 24 hr 11/21/18 11/21/18 11:06 16:02 Sodium 141 Potassium 3.4 L Chloride 106 Carbon Dioxide 23 Anion Gap 15 BUN 17 Creatinine 1.3 Est GFR ( Amer) > 60 Est GFR (Non-Af Amer) 59 Random Glucose 146 H D Calcium 9.1 Troponin I 0.0160
--- NOTE | 2018-11-21 17:38 | CP.PCM.PN ---
Subjective - Date & Time of Evaluation Date of Evaluation: 11/21/18 Time of Evaluation: 17:38 Objective - Vital Signs/Intake and Output Vital Signs (last 24 hours): Temp Pulse Resp BP Pulse Ox 97.8 F 78 20 148/76 97 11/21/18 15:00 11/21/18 15:00 11/21/18 15:00 11/21/18 15:00 11/21/18 15:00 - Medications Medications: Current Medications Albuterol/Ipratropium (Duoneb 3 Mg/0.5 Mg (3 Ml) Ud) 3 ml INH RQ6 SAMANTHA Amlodipine Besylate (Norvasc) 10 mg PO DAILY [facility] Last Admin: 11/21/18 10:17 Dose: Not Given Chlorthalidone (Hygroton) 25 mg PO DAILY [facility] Last Admin: 11/21/18 10:17 Dose: Not Given Colchicine (Colocrys) 0.6 mg PO BID PRN PRN Reason: Pain, moderate (4-7) Last Admin: 11/21/18 10:16 Dose: 0.6 mg Enoxaparin Sodium (Lovenox) 40 mg SC DAILY [facility] Last Admin: 11/21/18 10:17 Dose: 40 mg Hydrochlorothiazide (Hydrodiuril) 25 mg PO DAILY [facility] Last Admin: 11/21/18 10:17 Dose: Not Given Azithromycin 500 mg/ Sodium (Chloride) 250 mls @ 250 mls/hr IVPB Q24H [facility]; Protocol Last Admin: 11/21/18 00:01 Dose: 250 mls/hr Ceftriaxone Sodium 1 gm/ (Sodium Chloride) 100 mls @ 100 mls/hr IVPB DAILY [facility]; Protocol Last Admin: 11/21/18 10:17 Dose: 100 mls/hr Indomethacin (Indocin) 50 mg PO TID PRN PRN Reason: Pain, moderate (4-7) Labetalol HCl (Trandate) 400 mg PO BID [facility] Last Admin: 11/21/18 17:19 Dose: 400 mg Losartan Potassium (Cozaar) 50 mg PO DAILY [facility] Last Admin: 11/21/18 10:16 Dose: 50 mg Nitroglycerin (Nitro-Bid 2% Oint) 1 ea TOP Q6H PRN PRN Reason: Other Last Admin: 11/21/18 14:06 Dose: 1 ea Pantoprazole Sodium (Protonix Ec Tab) 40 mg PO DAILY [facility] Last Admin: 11/21/18 10:16 Dose: 40 mg Potassium Chloride (K-Dur 20 Meq Er Tab) 40 meq PO ONCE ONE Stop: 11/21/18 18:01 Last Admin: 11/21/18 17:20 Dose: 40 meq - Labs Labs: 11/19/18 19:13 11/21/18 16:02 Assessment and Plan - Assessment and Plan (Free Text) Assessment: FOLLOW UP WITH DR Al HERRERA IN HIS OFFICE IN 2 DAYS------CALL FOR APPOINTMENT ADDRESS YOUR BLOOD PRESSURE AT YOUR VISIT CONTINUE HOME MEDICATION NEW PRESCRIPTION GIVEN AUGMENTIN ONE TAB BY MOUTH EVEWERY 12 HOURS FOR 5 DAYS NICOTINE PATCH APPLY ONCE DAILY LOSARTAN 50 MG BY MOUTH ONE TAB DAILY FLORASTOR 250 MG ONE TAB BY MOUTH TWICE A DAY FOR 5 [address] [facility] CALL DR lA HERRERA OR GO TO THE EMERGENCY ROOM IF SYMPTOM RETURN OR WORSENING
[2018-11-21] MEDS ORDERED: Albuterol-Ipratrop 3 mg / 0.5 (3 ml) UD INH SCH (20:00)
--- NOTE | 2018-11-22 07:44 | CARD ---
APPROVED REPORT Date of service: 11/21/2018 EXAM: Two-dimensional and M-mode echocardiogram with Doppler and color Doppler. Other Information Quality : GoodRhythm : RISK FACTORS Hypertension Hyperlipidemia Smoking 2D DIMENSIONS IVSd1.3 (0.7-1.1cm)LVDd5.0 (3.9-5.9cm) PWd1.3 (0.7-1.1cm)LA Emumkb13 (18-58mL) LVDs3.3 (2.5-4.0cm)FS (%) 34.0 % LVEF (%)62.6 (>50%)LVEF (Guillen's)55.88 % M-Mode DIMENSIONS Left Atrium (MM)4.10 (2.5-4.0cm)IVSd1.20 (0.7-1.1cm) Aortic Root3.77 (2.2-3.7cm)LVDd5.33 (4.0-5.6cm) Aortic Cusp Exc.2.15 (1.5-2.0cm)PWd1.31 (0.7-1.1cm) FS (%) 38 %LVDs3.33 (2.0-3.8cm) LVEF (%)67 (>50%) Aortic Valve AI P 1/2 [id number] Mitral Valve MV E Crzkntqm905.8cm/sMV A Swibxiwb42.8cm/sE/A ratio1.8 TDI Lateral E' Peak V5.45cm/sMedial E' Peak V7.87cm/sE/Lateral E'20.3 E/Medial E'14.1 LEFT VENTRICLE The left ventricle is normal size. There is normal left ventricular wall thickness. Left ventricle systolic function is normal. The Ejection Fraction is 60-65%. There is normal LV segmental wall motion. The left ventricular diastolic function is normal. RIGHT VENTRICLE The right ventricle is normal size. There is normal right ventricular wall thickness. The right ventricular systolic function is normal. ATRIA The left atrium is mildly dilated. The right atrium size is normal. The interatrial septum is intact with no evidence for an atrial septal defect. AORTIC VALVE The aortic valve is normal in structure. There is mild to moderate aortic regurgitation. There is no aortic valvular stenosis. MITRAL VALVE The mitral valve is normal in structure. There is no evidence of mitral valve prolapse. There is no mitral valve stenosis. Mitral regurgitation is mild. TRICUSPID VALVE The tricuspid valve is normal in structure. There is mild tricuspid regurgitation. PULMONIC VALVE The pulmonic valve is not well visualized. There is no pulmonic valvular regurgitation. GREAT VESSELS The aortic root is normal in size. PERICARDIAL EFFUSION There is no significant pericardial effusion. <Conclusion> Left ventricle systolic function is normal. The Ejection Fraction is 60-65%. There is mild to moderate aortic regurgitation. Mitral regurgitation is mild. There is mild tricuspid regurgitation. There is no pulmonic valvular regurgitation.
--- NOTE | 2018-11-22 19:18 | CARD ---
APPROVED REPORT Date of service: 11/21/2018 EKG Measurement Heart [id number] <Conclusion> Normal sinus rhythm Possible Left atrial enlargement ST & T wave abnormality, consider lateral ischemia Prolonged QT Abnormal ECG
== END 2018-11-21 18:55 | disposition home or self-care (01) ==
LOC: C.ER 16:41 → C.9E 22:40 → C.5S 11-20 06:22
PROVIDERS: ADMIT Internal Medicine Nephrology; ATTEND Internal Medicine Nephrology
DX: I11.9 Hypertensive heart disease without heart failure (principal); F12.90 Cannabis use, unspecified, uncomplicated; E78.00 Pure hypercholesterolemia, unspecified; F17.210 Nicotine dependence, cigarettes, uncomplicated; H91.90 Unspecified hearing loss, unspecified ear; M48.02 Spinal stenosis, cervical region; Z79.899 Other long term (current) drug therapy; Z87.442 Personal history of urinary calculi; Z91.19 Patient's noncompliance with other medical treatment and regimen
CPT/HCPCS: 36415; 70490; 71046; 80048; 80053; 82948; 84484; 85025; 87040; 87070; 87430; 87804; 93005; 93306; 96365; 96366; 96367; 96372; 96375; 96376; 97116; 97162; 99285; G0378; G8978; G8979; J0456; J0696; J1650; J1885; J2280; J7050

== ENCOUNTER 2018-11-25 16:02 | Emergency (ER) | payer OTHER ==
[2018-11-25 16:59] LABS: BASO # 0.1 K/uL (0.0-0.2); EOS % 0.2 % (0.0-4.0); HEMOGLOBIN 15.4 g/dL (12.0-18.0); LYMPH # 1.3 K/uL (1.0-4.3); LYMPH % 23.5 % (20.0-40.0); MEAN CORPUSCULAR HEMOGLOBIN 29.9 pg (27.0-31.0); MEAN CORPUSCULAR HGB CONC 33.6 g/dL (33.0-37.0); MEAN PLATELET VOLUME 7.4 fL (7.2-11.7); MONO % 19.2 % (0.0-10.0); NEUT % 56.1 % (50.0-75.0); RBC 5.16 Mil/uL (4.40-5.90); RED CELL DISTRIBUTION WIDTH 14.4 % (11.5-14.5); WHITE BLOOD COUNT 5.4 K/uL (4.8-10.8)
[2018-11-25 17:18] LABS: ALB/GLOB RATIO 1.3 (1.0-2.1); ALBUMIN 4.7 g/dL (3.5-5.0); ALT/SGPT 40 U/L (21-72); AST/SGOT 63 U/L (17-59); BLOOD UREA NITROGEN 16 mg/dL (9-20); CALCIUM 9.1 mg/dl (8.6-10.4); GFR NON-AFRICAN AMERICAN 59
--- NOTE | 2018-11-25 17:26 | C.PDOC ---
History Of Present Illness 48 y/o male with history of HTN presents for medical evaluation of headache x 3 days with associated dizziness, orbital pain, rhinorrhea, sweating, and subjective fever. He was recently given Augmentin for URI on Sunday. He denies chest pain, SOB, weakness, N/V/D, and abdominal pain. He denies it being "the worst headache" of his life and any auras. Time Seen by Provider: 11/25/18 16:54 Chief Complaint (Nursing): High Blood Pressure History Per: Patient History/Exam Limitations: language barrier (Chilean Sign Language: ID [id number] was utilized ) Onset/Duration Of Symptoms: Days (3) Current Symptoms Are (Timing): Still Present Associated Symptoms: Dizziness, Headache. denies: Chest Pain, Dyspnea, Blurred Vision Severity: Severe Pain Scale Rating Of: 8 Recent travel outside of the [place]: No Past Medical History Reviewed: Historical Data, Nursing Documentation, Vital Signs Vital Signs: Last Vital Signs Temp 99.6 F 11/25/18 16:31 Pulse 98 H 11/25/18 16:31 Resp 20 11/25/18 16:31 BP 189/127 H 11/25/18 16:55 Pulse Ox 96 11/25/18 16:31 - Medical History PMH: Arthritis (Gout), HTN, Hypercholesterolemia, Chronic Pain (chronic left leg swelling and left ankle pain ) - [facility] Procedures CLOSURE SKIN & SUBCUTANEOUS NEC (12/30/14) TETANUS TOXOID ADMINIST (12/30/14) Family History: States: Unknown Family Hx - Social History Hx Tobacco Use: Yes Hx Alcohol Use: Yes Hx Substance Use: No - Immunization History Hx Tetanus Toxoid Vaccination: No Hx Influenza Vaccination: No Hx Pneumococcal Vaccination: No Review Of Systems Constitutional: Positive for: Fever (subjective), Sweats. Negative for: Chills, Weakness Eyes: Positive for: Pain (orbital) ENT: Positive for: Nose Discharge. Negative for: Throat Pain Cardiovascular: Negative for: Chest Pain Physical Exam - Physical Exam Appears: Well, Non-toxic, No Acute Distress Skin: Normal Color, Warm, Dry Head: Atraumatic, Normacephalic, No Tenderness Eye(s): bilateral: Normal Inspection Ear(s): Bilateral: Normal (TM intact) Nose: Flaring Oral Mucosa: Moist Throat: No Erythema Neck: Normal ROM, Supple Lymphatic: No Adenopathy Chest: Symmetrical Cardiovascular: Rhythm Regular Respiratory: Normal Breath Sounds, No Wheezing Gastrointestinal/Abdominal: Bowel Sounds, Soft, No Tenderness Back: No CVA Tenderness Neurological/Psych: Oriented x3, Normal Speech, Normal Cognition, Normal Sensation ED Course And Treatment - Laboratory Results Result Diagrams: 11/25/18 16:55 11/25/18 16:55 ECG: Viewed By Me ECG Rhythm: Sinus Rhythm Interpretation Of ECG: nonspecific ST and T wave abnormality; prolonged QT Rate From EC O2 Sat by Pulse Oximetry: 96 Medical Decision Making Medical Decision Making: A/P: 1.Influenza 2. HTN 3. H/A - BP stable now at 132/98 - D/W Dr. Сергей Martinez and will have him stop Augmentin and begin Tamiflu x 5 days - continue Losartan - Patient is to follow up with Dr. Martinez on Sunday - Patient verbalized understanding Disposition Counseled Patient/Family Regarding: Studies Performed, Diagnosis, Need For Followup, Rx Given - Disposition Referrals: Josephine Martinez MD [Staff Provider] - Disposition: AGAINST MEDICAL ADVICE Disposition Time: 07:30 Condition: IMPROVED Additional Instructions: GUS UMANA, thank you for letting us take care of you today. Your provider was Alyce Cobb MD and you were treated for [facility]. The emergency medical care you received today was directed at your acute symptoms. If you were prescribed any medication, please fill it and take as d irected. It may take several days for your symptoms to resolve. Return to the Emergency Department if your symptoms worsen, do not improve, or if you have any other problems. Please contact your doctor or call one of the physicians/clinics you have been referred to that are listed on the Patient Visit Information form that is included in your discharge packet. Bring any paperwork you were given at discharge with you along with any medications you are taking to your follow up visit. Our treatment cannot replace ongoing medical care by a primary care provider outside of the emergency department. Thank you for allowing the [facility] team to be part of your care today. Prescriptions: Oseltamivir Phosphate [Tamiflu] 75 mg PO BID #10 capsule Instructions: High Blood Pressure (DC), Headache, Adult (DC), Flu, Adult (DC) Forms: [employer] ([employer]) - Clinical Impression Clinical Impression: Headache, Hypertension, Influenza A - PA / REGION MANAGER / Resident Statement MD/DO has reviewed & agrees with the documentation as recorded.
[2018-11-25 19:18] VITALS: PULSE 74; RESP 17; TEMP 98.6
[2018-11-25 19:22] VITALS: O2SAT 96
[2018-11-25 19:25] VITALS: BP 132/98
--- NOTE | 2018-11-27 14:50 | CARD ---
APPROVED REPORT Date of service: 11/25/2018 EKG Measurement Heart [id number] <Conclusion> Normal sinus rhythm Nonspecific ST and T wave abnormality Prolonged QT Abnormal ECG
== END 2018-11-25 19:45 | disposition left against medical advice (07) ==
LOC: C.ER 16:02
DX: I10 Essential (primary) hypertension (principal); J09.X2 Influenza due to identified novel influenza A virus with other respiratory manifestations; R51 Headache

== ENCOUNTER 2019-01-08 07:24 | Emergency (ER) | payer OTHER ==
--- NOTE | 2019-01-08 07:50 | C.PDOC ---
History Of Present Illness 48 year old male with PMHx of Gout, HTN and deafness presents to the ED complaining of Gout exacerbation on right foot ongoing for 4 days. Reports he feels the pain at the base of the first right toe. Notes pain is similar to prior episodes. Denies any trauma. Reports he is compliant with medications, but does not recall the names. Reports he last took his blood pressure medications yesterday at 12pm. Denies any other associated symptoms. Patient has multiple ER visits for uncontrolled blood pressure and gout. HPI limited because patient is a poor historian. HPI via surveillance supervisor. 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 History/Exam Limitations: other (poor historian, deaf) Onset/Duration Of Symptoms: Days Current Symptoms Are (Timing): Still Present Additional History Per: Prior Records Past Medical History Reviewed: Historical Data, Nursing Documentation, Vital Signs Vital Signs: Last Vital Signs Temp 99 F 01/08/19 07:35 Pulse 105 H 01/08/19 07:35 Resp 19 01/08/19 07:35 BP 245/140 H 01/08/19 07:35 Pulse Ox 99 01/08/19 07:35 - Medical History PMH: Arthritis (Gout), HTN, Hypercholesterolemia, Chronic Pain (chronic left leg swelling and left ankle pain ) Other Surgeries: Hx of surgeries - [facility] Procedures CLOSURE SKIN & SUBCUTANEOUS NEC (12/30/14) TETANUS TOXOID ADMINIST (12/30/14) Family History: States: No Known Family Hx - Social History Hx Tobacco Use: Yes Hx Alcohol Use: Yes Hx Substance Use: Yes - Immunization History Hx Tetanus Toxoid Vaccination: No Hx Influenza Vaccination: No Hx Pneumococcal Vaccination: No Review Of Systems Except As Marked, All Systems Reviewed And Found Negative. Constitutional: Negative for: Fever, Chills Cardiovascular: Negative for: Chest Pain Respiratory: Negative for: Shortness of Breath Gastrointestinal: Negative for: Vomiting, Abdominal Pain, Diarrhea Musculoskeletal: Positive for: Foot Pain (right ) Neurological: Negative for: Weakness, Numbness Physical Exam - Physical Exam Appears: Non-toxic, No Acute Distress, Other (deaf ) Skin: Warm, Dry Head: Normacephalic Eye(s): bilateral: PERRL, EOMI Oral Mucosa: Moist Neck: Supple Chest: Symmetrical Cardiovascular: Rhythm Regular Respiratory: No Rhonchi, No Stridor, No Wheezing, Other (CTA B/L) Gastrointestinal/Abdominal: Soft, No Tenderness Extremity: Normal ROM, No Deformity, Swelling (mild swelling on the base of first metatarsal of right foot ) Neurological/Psych: Oriented x3 Gait: Steady ED Course And Treatment O2 Sat by Pulse Oximetry: 99 (RA) Pulse Ox Interpretation: Normal Progress - Re-Evaluation Re-evaluation Note: 01/08/19 08:54 SLEEPING, APPEARS COMFORTABLE 169/80 01/08/19 09:17 VIA TRANS PS "I CAN'T SLEEP MY FOOT STILL HURTS" DESPITE WITNESSED BY ED STAFF TO HAVE BEEN SLEEPING FOR 30 MINS. "I DIDNT GET MEDS TODAY" DESPITE ACKNOWLEDGING THE MULTIPLE PILLS GIVEN BY RN. PT NOTED TO STILL HAVE TAMIFLU PILLS (PRESCRIBED 11/2018) "I TAKE IT FOR PAIN". 01/08/19 10:24 D/W DR Al SORENSON FU OFFICE TODAY - Data Reviewed Data Reviewed: Old records Medical Decision Making Medical Decision Making: Prior records reviewed. Patient's blood pressure up to 210/130 since October 2018. Plan - Catapres 0.2mg PO - Colorcrys 1.2mg PO - Indocin 50mg PO - Prednisone 60mg PO - Reassess Disposition Counseled Patient/Family Regarding: Diagnosis, Need For Followup, Rx Given - Disposition Referrals: YOUR,PMD [Other] Disposition: HOME/ ROUTINE Disposition Time: 10:24 Condition: IMPROVED Prescriptions: Indomethacin [Indocin] 50 mg PO TID #9 cap predniSONE [Prednisone] 60 mg PO DAILY #12 tab Instructions: Gout (DC) Forms: [employer] (Slovenian) - Clinical Impression Clinical Impression: Gout, Hypertension - Scribe Statement The provider has reviewed the documentation as recorded by the Scribe Lexie Mcmanus All medical record entries made by the Jenniferibe were at my direction and personally dictated by me. I have reviewed the chart and agree that the record accurately reflects my personal performance of the history, physical exam, me dical decision making, and the department course for this patient. I have also personally directed, reviewed, and agree with the discharge instructions and disposition.
[2019-01-08 11:02] VITALS: O2SAT 97
[2019-01-08 17:18] VITALS: BP 160/90; PULSE 84; RESP 20; TEMP 98
== END 2019-01-08 17:18 | disposition home or self-care (01) ==
LOC: C.ER 07:24
DX: M10.9 Gout, unspecified (principal); I10 Essential (primary) hypertension; E78.00 Pure hypercholesterolemia, unspecified; Z72.0 Tobacco use

== ENCOUNTER 2019-03-10 16:44 | Emergency (ER) | payer OTHER ==
[2019-03-10 17:14] VITALS: BP 219/131; PULSE 78; RESP 18; TEMP 98.8; O2SAT 98
--- NOTE | 2019-03-10 17:20 | C.PDOC ---
History Of Present Illness 48 y/o male, with history of hypertension, is sent to the ER from a clinic for reported high blood pressure. States that he has not been taking his medications for the past 3 months. Patient has been seen here multiple times for similar. At bedside, patient is requesting prescriptions and to be discharged. He denies any ER workup. Patient is deaf, youth ministry director was used. Time Seen by Provider: 03/10/19 16:52 Chief Complaint (Nursing): High Blood Pressure History Per: Patient History/Exam Limitations: no limitations Onset/Duration Of Symptoms: Hrs Current Symptoms Are (Timing): Still Present Past Medical History Reviewed: Historical Data, Nursing Documentation, Vital Signs Vital Signs: Last Vital Signs Temp 98.8 F 03/10/19 17:09 Pulse 78 03/10/19 17:09 Resp 18 03/10/19 17:09 BP 219/131 H 03/10/19 17:09 Pulse Ox 98 03/10/19 17:09 Primary Care Provider: Non [facility] Provider, - Medical History PMH: Arthritis (Gout), HTN, Hypercholesterolemia, Chronic Pain (chronic left leg swelling and left ankle pain ) - [facility] Procedures CLOSURE SKIN & SUBCUTANEOUS NEC (12/30/14) TETANUS TOXOID ADMINIST (12/30/14) Family History: States: No Known Family Hx - Social History Hx Tobacco Use: Yes Hx Alcohol Use: Yes Hx Substance Use: Yes - Immunization History Hx Tetanus Toxoid Vaccination: No Hx Influenza Vaccination: No Hx Pneumococcal Vaccination: No Review Of Systems Except As Marked, All Systems Reviewed And Found Negative. Constitutional: Negative for: Fever, Chills Cardiovascular: Negative for: Chest Pain Respiratory: Negative for: Shortness of Breath Neurological: Negative for: Weakness, Numbness Physical Exam - Physical Exam Appears: Non-toxic, No Acute Distress Skin: Warm, Dry Head: Normacephalic Eye(s): bilateral: Normal Inspection Oral Mucosa: Moist Neck: Supple Cardiovascular: Rhythm Regular, No Murmur Respiratory: Normal Breath Sounds, No Rales, No Rhonchi, No Wheezing Gastrointestinal/Abdominal: Soft, No Tenderness Extremity: Tenderness (left 1st toe), No Deformity, Swelling (minimal eft 1st toe) Extremity: Bilateral: Atraumatic, Normal ROM Neurological/Psych: Oriented x3, Normal Speech, Normal Cognition ED Course And Treatment O2 Sat by Pulse Oximetry: 98 (RA) Pulse Ox Interpretation: Normal Against Medical Advice - AMA Patient Left Against Medical Advice: The risks of leaving were explained to the patient and include, but are not limited to, worsening of known or currently unknown conditions, permanent disability and from undiagnosed or untreated conditions. The patient has the capacity to make this informed decision and understands my explanation of the current medical problem and risks of leaving. The patient voluntarily accepts these risks and signed an AMA form documenting our conversation. The patient was given the opportunity to ask questions and reconsider. The patient was encouraged to return to the Emergency Department at any time for further care. Medical Decision Making Medical Decision Making: bp elevated in er. r/o urgency vs emergency refuses er garzon. exaplined risk via youth ministry director understands risks. signs ama. requests rx for chronic gout pain as well Disposition - Disposition Disposition: HOME/ ROUTINE Disposition Time: 17:00 Condition: STABLE Additional Instructions: return to er with worsening symptoms or concerns. Prescriptions: Losartan [Cozaar] 50 mg PO DAILY #14 tab Naproxen [EC-Naprosyn] 500 mg PO BID PRN #14 tablet.dr VASQUEZ Reason: Pain, Mild (1-3) Instructions: High Blood Pressure Emergencies, Leaving Against Medical Advice Forms: [employer] (Armenian) - Clinical Impression Clinical Impression: Hypertension, Left against medical advice - Scribe Statement The provider has reviewed the documentation as recorded by the Huang Beal Provider Attestation: All medical record entries made by the Scribe were at my direction and personally dictated by me. I have reviewed the chart and agree that the record accurately reflects my personal performance of the history, physical exam, medical decision making, and the department course for this patient. I have also personally directed, reviewed, and agree with the discharge instructions and disposition.
--- NOTE | 2019-03-10 17:21 | C.PDOC ---
Time Seen by Provider: 03/10/19 16:52 Chief Complaint (Nursing): High Blood Pressure Past Medical History Vital Signs: Last Vital Signs Temp 98.8 F 03/10/19 17:09 Pulse 78 03/10/19 17:09 Resp 18 03/10/19 17:09 BP 219/131 H 03/10/19 17:09 Pulse Ox 98 03/10/19 17:09 Primary Care Provider: Non [facility] Provider, - Medical History PMH: Arthritis (Gout), HTN, Hypercholesterolemia, Chronic Pain (chronic left leg swelling and left ankle pain ) - [facility] Procedures CLOSURE SKIN & SUBCUTANEOUS NEC (12/30/14) TETANUS TOXOID ADMINIST (12/30/14) Family History: States: Unknown Family Hx - Social History Hx Tobacco Use: Yes Hx Alcohol Use: Yes Hx Substance Use: Yes - Immunization History Hx Tetanus Toxoid Vaccination: No Hx Influenza Vaccination: No Hx Pneumococcal Vaccination: No ED Course And Treatment O2 Sat by Pulse Oximetry: 98 Disposition - Disposition Disposition: HOME/ ROUTINE Disposition Time: 17:15 Condition: STABLE Additional Instructions: return to er with worsening symptoms or concerns. Prescriptions: Losartan [Cozaar] 50 mg PO DAILY #14 tab Instructions: High Blood Pressure Emergencies, Leaving Against Medical Advice - Clinical Impression Clinical Impression: Hypertension, Left against medical advice
[2019-03-10] MEDS ORDERED: Naproxen 550 mg Tab PO STA (17:53)
[2019-03-10] MEDS ORDERED: Naproxen 550 mg Tab PO ONE (18:00)
== END 2019-03-10 17:59 | disposition home or self-care (01) ==
LOC: C.ER 16:44
DX: I10 Essential (primary) hypertension (principal)